=== PATIENT | female | born 1970 | race Caucasian/White ===

== ENCOUNTER 2016-11-16 07:59 | Inpatient (IN) | payer OTHER ==
[2016-11-16 18:58] VITALS: BMI 24.5
--- NOTE | 2016-11-16 19:53 | HP ---
CIWA Score - CIWA Score Nausea/Vomitin Muscle Tremors: 3 Anxiety: 2 Agitation: 2 Paroxysmal Sweats: 3 Orientation: 0-Oriented Tacttile Disturbances: 0-None Auditory Disturbances: 0-None Visual Disturbances: 0-None Headache: 3-Moderate CIWA-Ar Total Score: 15 Admission ROS BHS - HPI Chief Complaint: WITHDRAWAL SYMPTOMS Allergies/Adverse Reactions: Allergies Allergy/AdvReac Type Severity Reaction Status Date / Time Penicillins Allergy Intermediate Rash Verified 11/16/16 08:52 History of Present Illness: 46 Y.O. WOMAN WITH A HISTORY OF ALCOHOL DEPENDENCE IS HERE SEEKING DETOX. SHE REPORTS SHE COMPLETED REHAB IN 05/2016 AND DETOX IN 08/2016 AT ANOTHER FACILITY. DOES NOT HAVE A SIGNIFICANT PERIOD OF SOBRIETY. Exam Limitations: No Limitations - Ebola screening Have you traveled outside of the country in the last 21 days: No Have you been sick,other than usual withdrawal symptoms: No - Review of Systems Constitutional: Chills, Loss of Appetite, Night Sweats, Changes in sleep, Unintentional Wgt. Loss EENT: reports: Tearing, Nose Congestion Respiratory: reports: No Symptoms reported Cardiac: reports: No Symptoms Reported GI: reports: No Symptoms Reported, Poor Appetite : reports: No Symptoms Reported Musculoskeletal: reports: Back Pain Integumentary: reports: No Symptoms Reported Neuro: reports: Headache Endocrine: reports: No Symptoms Reported Hematology: reports: No Symptoms Reported Psychiatric: reports: Judgement Intact, Mood/Affect Appropiate, Orientated x3, Anxious, other (BIPOLAR) Other Systems: Reviewed and Negative Patient History - Patient Medical History Hx Anemia: No Hx Asthma: No Hx Chronic Obstructive Pulmonary Disease (COPD): No Hx Cancer: No Hx Cardiac Disorders: No Hx Congestive Heart Failure: No Hx Hypertension: Yes Hx Hypercholesterolemia: No Hx Pacemaker: No HX Cerebrovascular Accident: No Hx Seizures: No Hx Dementia: No Hx Diabetes: No Hx Gastrointestinal Disorders: No Hx Liver Disease: Yes (ELEVATED CHEMISTRY) Hx Genitourinary Disorders: No Hx Sexually Transmitted Disorders: No Hx Renal Disease (ESRD): No Hx Thyroid Disease: No Hx Human Immunodeficiency Virus (HIV): No Hx Hepatitis C: No Hx Depression: Yes Hx Suicide Attempt: No Hx Bipolar Disorder: Yes Hx Schizophrenia: No - Patient Surgical History Past Surgical History: Yes Hx Neurologic Surgery: No Hx Cataract Extraction: No Hx Cardiac Surgery: No Hx Lung Surgery: No Hx Breast Surgery: No Hx Breast Biopsy: No Hx Abdominal Surgery: No Hx Appendectomy: No Hx Cholecystectomy: No Hx Genitourinary Surgery: No Hx Section: No Hx Orthopedic Surgery: No Other Surgical History: T/A; HERNIA Anesthesia Reaction: No - PPD History Previous Implant?: Yes Documented Results: Negative w/o proof Implanted On Prior [facility] Admission?: Yes PPD to be Administered?: Yes - Reproductive History Patient is a Female of Child Bearing Age (11 -55 yrs old): Yes Last Menstrual Period: 11/02/16 Patient : No - Smoking Cessation Smoking history: Current every day smoker Have you smoked in the past 12 months: Yes Aproximately how many cigarettes per day: 2 Hx Chewing Tobacco Use: No Initiated information on smoking cessation: Yes 'Breaking Loose' booklet given: 11/16/16 - Substance & Tx. History Hx Alcohol Use: Yes Hx Substance Use: No Substance Use Type: Alcohol Hx Substance Use Treatment: Yes (REHAB: 05/2015; DETOX: 08/2016) - Substances Abused Alcohol Route: Oral Frequency: Daily Amount used: liquor- 1 pint, beer-1 six Age of first use: 14 Date of Last Use: 11/15/16 Family Disease History - Family Disease History Family Disease History: Diabetes: Grandparent, Heart Disease: Mother, Other: Father (HEROIN DEPENDENCE) Admission Physical Exam S - Vital Signs Vital Signs: Vital Signs - 24 hr 11/16/16 18:56 Temperature 98.2 F Pulse Rate 110 H Respiratory 18 Rate Blood Pressure 130/90 - Physical General Appearance: Yes: Anxious HEENTM: Yes: Hearing grossly Normal, Normocephalic, Normal Voice Respiratory: Yes: Chest Non-Tender, Lungs Clear, Normal Breath Sounds, No Respiratory Distress, No Accessory Muscle Use Neck: Yes: No masses,lesions,Nodules, Trachea in good position Breast: Yes: Breast Exam Deferred Cardiology: Yes: Regular Rhythm, Tachycardia Abdominal: Yes: Normal Bowel Sounds, Non Tender, Flat, Soft Genitourinary: Yes: Other (NO COMPLAINTS REPORTED) Musculoskeletal: Yes: Back pain Extremities: Yes: Normal Capillary Refill, Normal Inspection, Normal Range of Motion, Non-Tender 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 NML intact, Fully Oriented, Alert, Normal Mood/ Affect, Normal Response Integumentary: Yes: Normal Color, Dry, Warm Lymphatic: Yes: Within Normal Limits - Diagnostic (1) Alcohol dependence with uncomplicated withdrawal Current Visit: Yes Status: Chronic (2) Hypertension Current Visit: Yes Status: Chronic (3) Nicotine dependence Current Visit: Yes Status: Chronic Cleared for Admission [facility] - Detox or Rehab [facility] Level of Care: Medically Managed Detox Regimen/Protocol: Librium [facility] Breath Alcohol Content Breath Alcohol Content: 0 Urine Pregancy Test - Result Urine Test Results: Negative- NO Line Present Urine Drug Screen - Results Drug Screen Negative: No Urine Drug Screen Results: HERNAN-Cocaine, BZO-Benzodiazepines
[2016-11-16] MEDS ORDERED: ACETAMINOPHEN 325 MG TABLET (FP) PO PRN (20:03)
[2016-11-16] MEDS ORDERED: chlordiazePOXIDE HCL 25 MG CAPSULE PO PRN (20:03)
[2016-11-16] MEDS ORDERED: MENTHOL/PHENOL 1 EACH UD MM PRN (20:03)
[2016-11-16] MEDS ORDERED: NICOTINE POLACRILEX 2 MG GUM BUC PRN (20:03)
[2016-11-16] MEDS ORDERED: MAGNESIUM HYDROX 2400MG/30ML ORAL SUSPENSION 30 ML CUP PO PRN (20:03)
[2016-11-16] MEDS ORDERED: MAG HYDROX/AL HYDROX/SIMETH 30 ML UNIT-DOSE CUP PO PRN (20:03)
[2016-11-16] MEDS ORDERED: LOPERAMIDE HCL 2 MG CAPSULE PO PRN (20:03)
[2016-11-16] MEDS ORDERED: IBUPROFEN 400 MG TABLET (FP) PO PRN (20:03)
[2016-11-16] MEDS ORDERED: chlordiazePOXIDE HCL 25 MG CAPSULE PO ONE (20:03)
[2016-11-16] MEDS ORDERED: P-EPHED 60MG/TRIPROLIDI 2.5MG TABLET PO PRN (20:03)
[2016-11-16] MEDS ORDERED: guaiFENesin/D-METHORPHAN HB 10 ML UNIT-DOSE CUPS PO PRN (20:03)
[2016-11-16] MEDS ORDERED: MAGNESIUM CITRATE 300 ML BOTTLE PO PRN (20:03)
[2016-11-16] MEDS ORDERED: diphenhydrAMINE HCL 50 MG CAPSULE PO PRN (22:00)
[2016-11-16] MEDS: THIAMINE HCL 100 MG TABLET (FP) PO SCH (22:53)
[2016-11-16] MEDS: chlordiazePOXIDE HCL 25 MG CAPSULE PO SCH (22:53)
[2016-11-16] MEDS: hydrOXYzine PAMOATE 50 MG CAPSULE (FP) PO PRN (22:54)
[2016-11-16 23:05] LABS: URINE APPEARANCE SLCLOUDY; URINE BILIRUBIN NEGATIVE (NEGATIVE); URINE BLOOD 1+ (NEGATIVE); URINE COLOR YELLOW; URINE GLUCOSE (UA) NEGATIVE (NEGATIVE); URINE KETONE 1+ (NEGATIVE); URINE LEUK ESTERASE 1+ (NEGATIVE); URINE NITRITE NEGATIVE (NEGATIVE); URINE PROTEIN 1+ (NEGATIVE); URINE UROBILINOGEN NEGATIVE mg/dL (0.2-1.0)
[2016-11-16 23:07] LABS: URINE BACTERIA MODERATE /hpf (NONE SEEN); URINE MUCUS MANY; URINE RBC 5 /hpf (0-3); URINE WBC 37 /hpf (3-5); YEAST RARE
[2016-11-17] MEDS: chlordiazePOXIDE HCL 25 MG CAPSULE PO SCH ×4 (05:21→22:11)
[2016-11-17 10:03] LABS: ALBUMIN 3.6 g/dl (3.4-5.0); ANION GAP 7 (8-16); CALCIUM 8.4 mg/dL (8.5-10.1); CO2 27 mmol/L (21-32); GLUCOSE,RANDOM 110 mg/dL (74-106)
[2016-11-17 10:07] LABS: ALK PHOS 64 U/L (45-117); BILIRUBIN,TOTAL 1.2 mg/dL (0.2-1.0); CREATININE 0.7 mg/dL (0.55-1.02); MCH 29.6 pg (25.7-33.7); MCHC 33.4 g/dl (32.0-36.0); MEAN CELL VOLUME 88.5 fl (80-96); MEAN PLT VOLUME 7.5 fl (7.5-11.1); PLATELET COUNT 109 K/MM3 (134-434); RDW 13.5 % (11.6-15.6); SGOT/AST 82 U/L (15-37); SGPT/ALT 76 U/L (12-78); TOT PROT 6.3 g/dl (6.4-8.2); WHITE BLOOD COUNT 3.4 K/mm3 (4.0-10.0)
[2016-11-17] MEDS: PRENATAL VITAMINS W/ FOLIC ACID TABLET (FP) PO SCH (10:44)
[2016-11-17] MEDS: LISINOPRIL 10 MG TABLET (FP) PO SCH (10:44)
[2016-11-17] MEDS: NICOTINE 14 MG/24 HOURS TOPICAL PATCH TD SCH (10:45)
--- NOTE | 2016-11-17 11:04 | PN ---
S CIWA - CIWA Score Nausea/Vomitin Muscle Tremors: 3 Anxiety: 3 Agitation: 2 Paroxysmal Sweats: 1-Minimal Palms Moist Orientation: 0-Oriented Tacttile Disturbances: 1-Very Mild Itch/Numbness Auditory Disturbances: 1-Very Mild Visual Disturbances: 1-Very Mild Sensitivity Headache: 2-Mild CIWA-Ar Total Score: 17 BHS Progress Note (SOAP) Subjective: ALERT,IRRITABLE,ANXIOUS,INTERRUPTED SLEEP,TREMOR Objective: 11/17/16 11:02 Vital Signs Temperature 98.2 F 11/17/16 10:00 Pulse Rate 86 11/17/16 10:00 Respiratory Rate 18 11/17/16 10:00 Blood Pressure 135/86 11/17/16 10:00 O2 Sat by Pulse Oximetry (%) EKG NSR,NORMAL ECG Laboratory Last Values WBC 3.4 K/mm3 (4.0-10.0) L 11/17/16 07:00 RBC 3.64 M/mm3 (3.60-5.2) 11/17/16 07:00 Hgb 10.8 GM/dL (10.7-15.3) 11/17/16 07:00 Hct 32.2 % (32.4-45.2) L 11/17/16 07:00 MCV 88.5 fl (80-96) 11/17/16 07:00 MCH 29.6 pg (25.7-33.7) 11/17/16 07:00 MCHC 33.4 g/dl (32.0-36.0) 11/17/16 07:00 RDW 13.5 % (11.6-15.6) 11/17/16 07:00 Plt Count 109 K/MM3 (134-434) L 11/17/16 07:00 MPV 7.5 fl (7.5-11.1) 11/17/16 07:00 Sodium 136 mmol/L (136-145) 11/17/16 07:00 Potassium 3.7 mmol/L (3.5-5.1) 11/17/16 07:00 Chloride 102 mmol/L (98-107) 11/17/16 07:00 Carbon Dioxide 27 mmol/L (21-32) D 11/17/16 07:00 Anion Gap 7 (8-16) L 11/17/16 07:00 BUN 10 mg/dL (7-18) D 11/17/16 07:00 Creatinine 0.7 mg/dL (0.55-1.02) 11/17/16 07:00 Creat Clearance w eGFR > 60 (>60) 11/17/16 07:00 Random Glucose 110 mg/dL (74-106) H D 11/17/16 07:00 Calcium 8.4 mg/dL (8.5-10.1) L 11/17/16 07:00 Total Bilirubin 1.2 mg/dL (0.2-1.0) H D 11/17/16 07:00 AST 82 U/L (15-37) H D 11/17/16 07:00 ALT 76 U/L (12-78) 11/17/16 07:00 Alkaline Phosphatase 64 U/L (45-117) 11/17/16 07:00 Total Protein 6.3 g/dl (6.4-8.2) L 11/17/16 07:00 Albumin 3.6 g/dl (3.4-5.0) 11/17/16 07:00 Urine Color Yellow 11/16/16 22:50 Urine Appearance Slcloudy 11/16/16 22:50 Urine pH 5.0 (5.0-8.0) 11/16/16 22:50 Urine Protein 1+ (NEGATIVE) H 11/16/16 22:50 Urine Glucose (UA) Negative (NEGATIVE) 11/16/16 22:50 Urine Ketones 1+ (NEGATIVE) H 11/16/16 22:50 Urine Blood 1+ (NEGATIVE) H 11/16/16 22:50 Urine Nitrite Negative (NEGATIVE) 11/16/16 22:50 Urine Bilirubin Negative (NEGATIVE) 11/16/16 22:50 Urine Urobilinogen Negative mg/dL (0.2-1.0) 11/16/16 22:50 Ur Leukocyte Esterase 1+ (NEGATIVE) H 11/16/16 22:50 Urine RBC 5 /hpf (0-3) 11/16/16 22:50 Urine WBC 37 /hpf (3-5) 11/16/16 22:50 Ur Epithelial Cells Few /hpf (FEW) 11/16/16 22:50 Urine Bacteria Moderate /hpf (NONE SEEN) 11/16/16 22:50 Urine Mucus Many 11/16/16 22:50 Urine Yeast Rare 11/16/16 22:50 Assessment: 11/17/16 11:03 WITHDRAWAL SYMPTOM Plan: CONTINUE DETOX,REPEAT UA,ENCOURAGE ORAL FLUID
[2016-11-17 11:54] LABS: HIV 1 & 2 AB NEGATIVE; HIV 1 AGp24 NEGATIVE
--- NOTE | 2016-11-17 13:03 | CONSULT ---
[facility] Psychiatric Consult - Data Date of interview: 11/17/16 Admission source: [facility] Identifying data: Readmission to [facility] for this 46 y/o female seeking detox treatment on for alcohol dependence.Patient is single without children,domiciled,unemployed (just lost her job) and supported on personal savings. Substance Abuse History: Fully discussed with the patient.She confirms this [facility] report. - Smoking Cessation. Smoking history: Current every day smoker. Have you smoked in the past 12 months: Yes. Aproximately how many cigarettes per day : 2. Hx Chewing Tobacco Use: No. Initiated information on smoking cessation: Yes. 'Breaking Loose' booklet given: 11/16/16. - Substance & Tx. History. Hx Alcohol Use: Yes. Hx Substance Use: No. Substance Use Type: Alcohol. Hx Substance Use Treatment: Yes (REHAB: 05/2015; DETOX: 08/2016). - Substances Abused. Alcohol. Route: Oral. Frequency: Daily. Amount used: liquor- 1 pint, beer-1 six. Age of first use: 14. Date of Last Use: 11/15/16 Medical History: Hypertension and chronic back pain. Psychiatric History: Recent history of psycchiatric hospitalizations at [facility] (2015 + 2016).Diagnosed with Bipolar Disorder.Ms Lindsey reports that, until recently,she was folllowed at the [facility] in [facility] (Dr Batista).Maintenance medications consist of lithium 300 mg po bid + seroquel 50 mg/hs.Not taken for past four days as per self-report.Patient denies history of suicide attempts. Physical/Sexual Abuse/Trauma History: Patient denies. Additional Comment: Urine Drug Screen Results: HERNAN-Cocaine, BZO- Benzodiazepines.Noted. Mental Status Exam - Mental Status Exam Alert and Oriented to: Time, Place, Person Cognitive Function: Good Patient Appearance: Well Groomed Mood: Hopeful, Euthymic Affect: Appropriate, Normal Range Patient Behavior: Fatigued, Appropriate, Cooperative Speech Pattern: Clear Voice Loudness: Normal (faroese fluent) Thought Process: Intact, Goal Oriented Thought Disorder: Not Present Hallucinations: Denies Suicidal Ideation: Denies Homicidal Ideation: Denies Insight/Judgement: Poor Sleep: Poorly, Difficulty falling asleep Appetite: Good Muscle strength/Tone: Normal Gait/Station: Normal Psychiatric Findings - Problem List (Martinez 1, 2,3) (1) Alcohol dependence with uncomplicated withdrawal Current Visit: Yes Status: Acute (2) Nicotine dependence Current Visit: Yes Status: Acute (3) Bipolar disorder Current Visit: Yes Status: Acute (4) Hypertension Current Visit: Yes Status: Chronic (5) Insomnia Current Visit: Yes Status: Acute - Initial Treatment Plan Initial Treatment Plan: Psychoeducation.Detoxification.Medications : lithium 300 mg po bid + seroquel 50 mg po hs.Patient is a good,reliable historian : medications verified with [id number] at [phone].Will start medications ( lithium level pending) in view of recent renal function evidenced by BUN = 10 - creatinine = 0.7 and GFR > 60.Electrolytes are normal.Side effects/benefits of these two drugs are discussed with patient,including potential for renal dysfunction,thyroid problems,alopecia areata,tremor,weight gain (lithium), oversedation/falls,metabolic syndrome,abnormal involuntary movements and cardiovasculr adverse events (seroquel).Patient insists on resuming her medications.Will follow lithium level and recheck Na level (repeat BMP).Patient is in agreement with this careplan.Observation.
[2016-11-17 22:04] LABS: URINE APPEARANCE CLEAR; URINE BILIRUBIN NEGATIVE (NEGATIVE); URINE BLOOD 1+ (NEGATIVE); URINE COLOR STRAW; URINE GLUCOSE (UA) NEGATIVE (NEGATIVE); URINE KETONE NEGATIVE (NEGATIVE); URINE NITRITE NEGATIVE (NEGATIVE); URINE PROTEIN NEGATIVE (NEGATIVE); URINE UROBILINOGEN NEGATIVE mg/dL (0.2-1.0)
[2016-11-17] MEDS: QUEtiapine FUMARATE 50 MG TABLET PO SCH (22:11)
[2016-11-17] MEDS: LITHIUM CARBONATE 300 MG CAPSULE (FP) PO SCH (22:11)
[2016-11-17] MEDS: THIAMINE HCL 100 MG TABLET (FP) PO SCH (22:11)
[2016-11-17 22:15] LABS: URINE LEUK ESTERASE 2+ (NEGATIVE)
[2016-11-17 22:47] LABS: URINE BACTERIA RARE /hpf (NONE SEEN); URINE RBC <1 /hpf (0-3); URINE WBC 3 /hpf (3-5)
[2016-11-18] MEDS: chlordiazePOXIDE HCL 25 MG CAPSULE PO SCH ×3 (05:52→17:33)
--- NOTE | 2016-11-18 08:15 | EKG ---
Test Reason : Blood Pressure : / mmHG Vent. Rate : 084 BPM Atrial Rate : 084 BPM P-R Int : 166 ms QRS Dur : 080 ms QT Int : 400 ms P-R-T Axes : 059 041 045 degrees QTc Int : 472 ms NORMAL SINUS RHYTHM NORMAL ECG WHEN COMPARED WITH ECG OF 16-NOV-2016 08:52, NO SIGNIFICANT CHANGE WAS FOUND Confirmed by TERESSA COOPER MD ([id number]) on 11/18/2016 8:15:08 AM Referred By: Cortez Krueger Confirmed By:TERESSA COOPER MD
[2016-11-18] MEDS: NICOTINE 14 MG/24 HOURS TOPICAL PATCH TD SCH (10:14)
[2016-11-18] MEDS: PRENATAL VITAMINS W/ FOLIC ACID TABLET (FP) PO SCH (10:16)
[2016-11-18] MEDS: LITHIUM CARBONATE 300 MG CAPSULE (FP) PO SCH ×2 (10:16→22:12)
[2016-11-18] MEDS: LISINOPRIL 10 MG TABLET (FP) PO SCH (10:17)
--- NOTE | 2016-11-18 11:33 | PN ---
[facility] CIWA - CIWA Score Nausea/Vomitin Muscle Tremors: 3 Anxiety: 3 Agitation: 2 Paroxysmal Sweats: 1-Minimal Palms Moist Orientation: 0-Oriented Tacttile Disturbances: 1-Very Mild Itch/Numbness Auditory Disturbances: 1-Very Mild Visual Disturbances: 1-Very Mild Sensitivity Headache: 2-Mild CIWA-Ar Total Score: 17 S Progress Note (SOAP) Subjective: ALERT,IRRITABLE,ANXIOUS,INTERRUPTED SLEEP, Objective: 11/18/16 11:36 Vital Signs Temperature 98.1 F 11/18/16 10:01 Pulse Rate 101 H 11/18/16 10:01 Respiratory Rate 18 11/18/16 10:01 Blood Pressure 137/88 11/18/16 10:01 O2 Sat by Pulse Oximetry (%) 11/18/16 11:36 Laboratory Last Values WBC 3.4 K/mm3 (4.0-10.0) L 11/17/16 07:00 RBC 3.64 M/mm3 (3.60-5.2) 11/17/16 07:00 Hgb 10.8 GM/dL (10.7-15.3) 11/17/16 07:00 Hct 32.2 % (32.4-45.2) L 11/17/16 07:00 MCV 88.5 fl (80-96) 11/17/16 07:00 MCH 29.6 pg (25.7-33.7) 11/17/16 07:00 MCHC 33.4 g/dl (32.0-36.0) 11/17/16 07:00 RDW 13.5 % (11.6-15.6) 11/17/16 07:00 Plt Count 109 K/MM3 (134-434) L 11/17/16 07:00 MPV 7.5 fl (7.5-11.1) 11/17/16 07:00 Sodium 136 mmol/L (136-145) 11/17/16 07:00 Potassium 3.7 mmol/L (3.5-5.1) 11/17/16 07:00 Chloride 102 mmol/L (98-107) 11/17/16 07:00 Carbon Dioxide 27 mmol/L (21-32) D 11/17/16 07:00 Anion Gap 7 (8-16) L 11/17/16 07:00 BUN 10 mg/dL (7-18) D 11/17/16 07:00 Creatinine 0.7 mg/dL (0.55-1.02) 11/17/16 07:00 Creat Clearance w eGFR > 60 (>60) 11/17/16 07:00 Random Glucose 110 mg/dL (74-106) H D 11/17/16 07:00 Fasting Glucose 106 mg/dL (70-105) H 11/18/16 08:00 Calcium 8.4 mg/dL (8.5-10.1) L 11/17/16 07:00 Total Bilirubin 1.2 mg/dL (0.2-1.0) H D 11/17/16 07:00 AST 82 U/L (15-37) H D 11/17/16 07:00 ALT 76 U/L (12-78) 11/17/16 07:00 Alkaline Phosphatase 64 U/L (45-117) 11/17/16 07:00 Total Protein 6.3 g/dl (6.4-8.2) L 11/17/16 07:00 Albumin 3.6 g/dl (3.4-5.0) 11/17/16 07:00 Urine Color Straw 11/17/16 21:45 Urine Appearance Clear 11/17/16 21:45 Urine pH 8.0 (5.0-8.0) D 11/17/16 21:45 Ur Specific [place] 1.010 (1.005-1.025) 11/17/16 21:45 Urine Protein Negative (NEGATIVE) 11/17/16 21:45 Urine Glucose (UA) Negative (NEGATIVE) 11/17/16 21:45 Urine Ketones Negative (NEGATIVE) 11/17/16 21:45 Urine Blood 1+ (NEGATIVE) H 11/17/16 21:45 Urine Nitrite Negative (NEGATIVE) 11/17/16 21:45 Urine Bilirubin Negative (NEGATIVE) 11/17/16 21:45 Urine Urobilinogen Negative mg/dL (0.2-1.0) 11/17/16 21:45 Ur Leukocyte Esterase 2+ (NEGATIVE) H 11/17/16 21:45 Urine RBC <1 /hpf (0-3) 11/17/16 21:45 Urine WBC 3 /hpf (3-5) 11/17/16 21:45 Ur Epithelial Cells Rare /hpf (FEW) 11/17/16 21:45 Urine Bacteria Rare /hpf (NONE SEEN) 11/17/16 21:45 Urine Mucus Many 11/16/16 22:50 Urine Yeast Rare 11/16/16 22:50 [place] 0.1 MEQ/L (0.6-1.2) L 11/17/16 07:00 RPR Titer Nonreactive (NONREACTIVE) 11/17/16 07:00 Hepatitis C Antibody <0.1 s/co ratio (0.0-0.9) 11/16/16 07:00 HIV 1&2 Antibody Screen Negative 11/17/16 07:00 HIV P24 Antigen Negative 11/17/16 07:00 11/18/16 11:37 FASTING GLUISE IS 106 Assessment: 11/18/16 11:37 WITHDRAWAL SYMPTOM Plan: CONTINUE DETOX
[2016-11-18] MEDS: hydrOXYzine PAMOATE 50 MG CAPSULE (FP) PO PRN ×2 (12:01→17:17)
[2016-11-18] MEDS: THIAMINE HCL 100 MG TABLET (FP) PO SCH (22:12)
[2016-11-18] MEDS: QUEtiapine FUMARATE 50 MG TABLET PO SCH (22:12)
[2016-11-18] MEDS: chlordiazePOXIDE 5 MG CAPSULE PO SCH (22:13)
[2016-11-19] MEDS: chlordiazePOXIDE 5 MG CAPSULE PO SCH ×3 (05:47→17:55)
[2016-11-19] MEDS: LISINOPRIL 10 MG TABLET (FP) PO SCH (10:16)
[2016-11-19] MEDS: PRENATAL VITAMINS W/ FOLIC ACID TABLET (FP) PO SCH (10:16)
[2016-11-19] MEDS: NICOTINE 14 MG/24 HOURS TOPICAL PATCH TD SCH (10:16)
[2016-11-19] MEDS: LITHIUM CARBONATE 300 MG CAPSULE (FP) PO SCH ×2 (10:16→22:26)
--- NOTE | 2016-11-19 10:43 | PN ---
S Progress Note (SOAP) Subjective: ALERT,IRRITABLE,ANXIOUS,INTERRUPTED SLEEP,CONSTIPATION Objective: 11/19/16 10:42 Vital Signs Temperature 97.3 F L 11/19/16 10:25 Pulse Rate 93 H 11/19/16 10:25 Respiratory Rate 18 11/19/16 10:25 Blood Pressure 134/88 11/19/16 10:25 O2 Sat by Pulse Oximetry (%) Assessment: 11/19/16 10:42 WITHDRAWAL SYMPTOM Plan: CONTINUE DETOX
[2016-11-19] MEDS: hydrOXYzine PAMOATE 50 MG CAPSULE (FP) PO PRN (14:03)
[2016-11-19] MEDS: QUEtiapine FUMARATE 50 MG TABLET PO SCH (22:25)
[2016-11-19] MEDS: chlordiazePOXIDE HCL 10 MG CAPSULE PO SCH (22:26)
[2016-11-19] MEDS: THIAMINE HCL 100 MG TABLET (FP) PO SCH (22:26)
[2016-11-20] MEDS: chlordiazePOXIDE HCL 10 MG CAPSULE PO SCH ×2 (05:44→11:22)
[2016-11-20] MEDS: hydrOXYzine PAMOATE 50 MG CAPSULE (FP) PO PRN (08:54)
--- NOTE | 2016-11-20 09:03 | DS ---
[facility] Detox Discharge Summary Admission Date: 11/16/16 Discharge Date: 11/20/16 - History Present History: Alcohol Dependence Additional Comments: follow up with after care program as arrangement Pertinent Past History: nicotine dependence hypertension - Physical Exam Results Vital Signs: Vital Signs Temperature 97.7 F 11/20/16 06:22 Pulse Rate 87 11/20/16 06:22 Respiratory Rate 18 11/20/16 06:22 Blood Pressure 102/67 11/20/16 06:22 O2 Sat by Pulse Oximetry (%) Pertinent Admission Physical Exam Findings: withdrawal ymptom - Treatment Hospital Course: Detox Protocol Followed, Responded well, Discharged Condition Good, Rehab Referral Accepted Patient has Accepted a Rehab Referral to: declined - Medication Discharge Medications: Ambulatory Orders Lisinopril [Zestril] 10 mg PO DAILY 11/16/16 [place] Carbonate [Lithobid] 300 mg PO BID 11/16/16 Quetiapine Fumarate [Seroquel -] 50 mg PO HS 11/16/16 Quetiapine Fumarate [Seroquel -] 50 mg PO HS #30 tablet 11/17/16 - Diagnosis (1) Alcohol dependence with uncomplicated withdrawal Current Visit: Yes Status: Acute (2) Hypertension Current Visit: Yes Status: Chronic (3) Nicotine dependence Current Visit: Yes Status: Acute (4) Bipolar disorder Current Visit: Yes Status: Acute (5) Insomnia Current Visit: Yes Status: Acute - AMA Did Patient Leave Against Medical Advice: No
[2016-11-20 09:48] VITALS: BP 133/84; PULSE 117; TEMP 98.1
[2016-11-20] MEDS: PRENATAL VITAMINS W/ FOLIC ACID TABLET (FP) PO SCH (11:21)
[2016-11-20] MEDS: LITHIUM CARBONATE 300 MG CAPSULE (FP) PO SCH (11:21)
[2016-11-20] MEDS: LISINOPRIL 10 MG TABLET (FP) PO SCH (11:22)
[2016-11-20] MEDS: NICOTINE 14 MG/24 HOURS TOPICAL PATCH TD SCH (11:22)
== END 2016-11-20 11:35 | disposition home or self-care (01) | DRG 775 ==
LOC: YASAS 07:59 → Y6N 19:19
PROVIDERS: ADMIT Internal Medicine; ATTEND Internal Medicine
PROC: HZ2ZZZZ Detoxification Services for Substance Abuse Treatment (ICD-10-PCS; principal; 2016-11-16)
DX: F10.230 Alcohol dependence with withdrawal, uncomplicated (principal); F17.210 Nicotine dependence, cigarettes, uncomplicated; F31.9 Bipolar disorder, unspecified; I10 Essential (primary) hypertension; G47.00 Insomnia, unspecified; R00.0 Tachycardia, unspecified
CPT/HCPCS: 36415; 80053; 80178; 81003; 81015; 82947; 85027; 86593; 86803; 87389; 93005; 93010

== ENCOUNTER 2016-11-16 08:44 | Emergency (ER) | payer OTHER ==
--- NOTE | 2016-11-16 08:54 | PDOC ---
History of Present Illness - General Chief Complaint: Chest Pain Stated Complaint: CHEST PAIN Time Seen by Provider: 11/16/16 08:54 - History of Present Illness Initial Comments: 11/16/16 09:50 Patient is a 46-year-old female past medical history of hypertension, who presents to the emergency department today complaining of chest tightness. Patient states that she was at [facility] to be admitted for detox (alcohol), when she fell lightheaded, dizzy and had some chest tightness. Patient states that her last drink was yesterday evening. She drank a liter of vodka yesterday. Patient also states that she smokes approximately 5 cigarettes a day. Denies tremors. Admits to nausea, vomiting. She states she has tried rehabilitation before, and that she has felt like this in the past when she is withdrawing but she is usually "just toughed it out". Denies fevers, chills, weakness, numbness and tingling, palpitations, edema, shortness of breath, cough, diarrhea, constipation, frequency, urgency and dysuria. Past History - Travel Traveled outside of the country in the last 30 days: No Close contact w/someone who was outside of country & ill: No - Past Medical History Allergies/Adverse Reactions: Allergies Allergy/AdvReac Type Severity Reaction Status Date / Time Penicillins Allergy Intermediate Rash Verified 11/16/16 08:52 Home Medications: Ambulatory Orders Unobtainable [Unobtainable] 11/16/16 HTN: Yes Liver Disease: Yes (ELEVATED CHEMISTRY) - Psycho/Social/Smoking Cessation Hx Smoking History: Current every day smoker Have you smoked in the past 12 months: Yes Number of Cigarettes Smoked Daily: 2 'Breaking Loose' booklet given: 12/31/13 Hx Alcohol Use: No Drug/Substance Use Hx: Yes (FEW TIMES/WEEK) Substance Use Type: Marijuana Review of Systems - Review of Systems Able to Perform ROS?: Yes Is the patient limited Belizean proficient: No Constitutional: No: Chills, Fever, Weakness Respiratory: No: Cough, Shortness of Breath, Wheezing Cardiac (ROS): Yes: Chest Pain, Lightheadedness, Chest Tightness. No: Edema, Palpitations ABD/GI: Yes: Nausea, Vomiting. No: Diarrhea : No: Burning, Dysuria, Frequency, Flank Pain, Hematuria Musculoskeletal: Yes: Back Pain Neurological: No: Headache, Numbness, Weakness, Unsteady Gait Psychiatric: Yes: Anxiety, Other (alchohol abuse). No: Depression All Other Systems: Reviewed and Negative *Physical Exam - Physical Exam Comments: 11/16/16 09:53 GENERAL: Well developed, well nourished. Awake and alert. No acute distress. HEENT: Normocephalic, atraumatic. PERRLA, EOMI. No conjunctival pallor. Sclera are non- icteric. Moist mucous membranes. Oropharynx is clear. NECK: Supple. Full ROM. No JVD. Carotid pulses 2+ and symmetric, without bruits. No thyromegaly. No lymphadenopathy. CARDIOVASCULAR: Regular rate and rhythm. No murmurs, rubs, or gallops. Distal pulses are 2+ and symmetric. PULMONARY: No evidence of respiratory distress. Lungs clear to auscultation bilaterally. No wheezing, rales or rhonchi. ABDOMINAL: Soft. Non-tender. Non-distended. No rebound or guarding. No organomegaly. Normoactive bowel sounds. MUSCULOSKELETAL Normal range of motion at all joints. No bony deformities or tenderness. No CVA tenderness. EXTREMITIES: No cyanosis. No clubbing. No edema. No calf tenderness. SKIN: Warm and dry. Normal capillary refill. No rashes. No jaundice. NEUROLOGICAL: Alert, awake, appropriate. Cranial nerves 2-12 intact. No deficits to light touch and temperature in face, upper extremities and lower extremities. No motor deficits in the in face, upper extremities and lower extremities. Normoreflexic in the upper and lower extremities. Normal speech. Toes are down- going bilaterally. Gait is normal without ataxia. PSYCHIATRIC: Cooperative. Good eye contact. Appropriate mood and affect. Heart Score/ECG Review - History History: Slightly suspicious - Electrocardiogram EKG: Normal - Age Age: 45-65 - Risk Factors Risk Factors Heart Score: Yes Hx Hypertension Based on the list above the patient has:: 1-2 risk factors - Troponin Troponin: </= normal limit - Score Heart Score - Total: 2 ED Treatment Course - LABORATORY CBC & Chemistry Diagram: 11/16/16 09:12 11/16/16 09:12 Medical Decision Making - Medical Decision Making 11/16/16 09:53 *DC/Admit/Observation/Transfer Diagnosis at time of Disposition: Chest pain Qualifiers: Chest pain type: other chest pain Qualified Code(s): R07.89 - Other chest pain - Discharge Dispostion Disposition: I.P. ALCOHOL/SUBS ABUSE REHAB Condition at time of disposition: Stable - Referrals Referrals: Aubree Paniagua MD [Primary Care Provider] - - Patient Instructions Printed Discharge Instructions: DI for Atypical Chest Pain Additional Instructions: You had some chest pain and nausea. Your work up today was negative and your cardiac labs were negative. Drink plenty of fluids. You may return to [facility]. Return to the ED if you have recurring chest pain, shortness of breath, dizziness, or lightheadedness, or any changes in your symptoms. Print Language: PRYDEINIG CIWA Score - CIWA Score Nausea/Vomitin (intermittant nausea with occasional vomiting) Muscle Tremors: None Anxiety: 4-Mod. Anxious/Guarded Agitation: 1-Slight > Activity Paroxysmal Sweats: No Perspiration Orientation: 0-Oriented Tacttile Disturbances: 0-None Auditory Disturbances: 0-None Visual Disturbances: 0-None Headache: 0-None Present CIWA-Ar Total Score: 10
[2016-11-16] MEDS ORDERED: ASPIRIN 81 MG CHEWABLE TABLETS PO ONE (08:55)
[2016-11-16 09:00] VITALS: BMI 24.5
[2016-11-16] MEDS ORDERED: FOLIC ACID INJECTION - 1 MG, THIAMINE HCL 100 MG, MULTIVIT INJECTION ADULT 10 ML in SOD... IVPB ONE (09:01)
[2016-11-16] MEDS ORDERED: ONDANSETRON 4 MG/2 ML VIAL IVPUSH ONE (09:06)
[2016-11-16] MEDS ORDERED: LORazepam 1 MG TABLET PO ONE ×2 (09:22→15:30)
[2016-11-16] MEDS ORDERED: ASPIRIN 81 MG CHEWABLE TABLETS ONE (09:22)
[2016-11-16] MEDS ORDERED: ONDANSETRON 4 MG/2 ML VIAL ONE (09:22)
[2016-11-16] MEDS ORDERED: LORazepam 0.5 MG TABLET ONE ×2 (09:27→16:06)
[2016-11-16 09:31] LABS: BASOPHIL 0.5 % (0-2.0); EOSINOPHIL 0.1 % (0-4.5); MCH 29.6 pg (25.7-33.7); MCHC 33.2 g/dl (32.0-36.0); MEAN PLT VOLUME 7.4 fl (7.5-11.1); NEUTROPHILS 71.6 % (42.8-82.8); PLATELET COUNT 122 K/MM3 (134-434); RDW 13.6 % (11.6-15.6); WHITE BLOOD COUNT 3.6 K/mm3 (4.0-10.0)
[2016-11-16 09:44] LABS: INR 0.95 (0.82-1.09); PROTHROMBIN TIME (PATIENT) 10.4 SEC (9.98-11.88)
[2016-11-16 10:03] LABS: ALBUMIN 4.1 g/dl (3.4-5.0); ANION GAP 16 (8-16); BILIRUBIN,TOTAL 0.7 mg/dL (0.2-1.0); CALCIUM 8.3 mg/dL (8.5-10.1); CO2 20 mmol/L (21-32); CREATININE 0.6 mg/dL (0.55-1.02); GLUCOSE,RANDOM 80 mg/dL (74-106); MAGNESIUM 1.7 mg/dL (1.8-2.4); SGOT/AST 122 U/L (15-37); SGPT/ALT 88 U/L (12-78)
[2016-11-16 10:05] LABS: ALK PHOS 74 U/L (45-117); CPK 249 IU/L (26-192); TROPONIN I < 0.02 ng/ml (0.00-0.05)
[2016-11-16] MEDS ORDERED: SODIUM CHLORIDE 1,000 ML IV STA (10:39)
[2016-11-16 11:58] LABS: URINE APPEARANCE CLEAR; URINE BILIRUBIN NEGATIVE (NEGATIVE); URINE BLOOD NEGATIVE (NEGATIVE); URINE COLOR LTYELLOW; URINE GLUCOSE (UA) NEGATIVE (NEGATIVE); URINE KETONE TRACE (NEGATIVE); URINE LEUK ESTERASE TRACE (NEGATIVE); URINE NITRITE NEGATIVE (NEGATIVE); URINE PROTEIN NEGATIVE (NEGATIVE); URINE UROBILINOGEN NEGATIVE mg/dL (0.2-1.0)
[2016-11-16 12:33] LABS: URINE MUCUS RARE; URINE RBC 1 /hpf (0-3); URINE WBC 2 /hpf (3-5)
--- NOTE | 2016-11-16 12:39 | PDOC ---
*Physical Exam - Vital Signs Last Vital Signs Temp Pulse Resp BP Pulse Ox 98.1 F 105 H 20 132/90 97 11/16/16 08:53 11/16/16 08:53 11/16/16 08:53 11/16/16 08:53 11/16/16 09:04 - Physical Exam Comments: 11/16/16 12:52 GENERAL: Awake, alert, and fully oriented, in no acute distress HEAD: No signs of trauma EYES: PERRLA, EOMI, sclera anicteric, conjunctiva clear ENT: Auricles normal inspection, hearing grossly normal, nares patent, oropharynx clear without exudates. Moist mucosa NECK: Normal ROM, supple, no lymphadenopathy, JVD, or masses LUNGS: Breath sounds equal, clear to auscultation bilaterally. No wheezes, and no crackles HEART: Regular rate and rhythm, normal S1 and S2, no murmurs, rubs or gallops ABDOMEN: Soft, nontender, normoactive bowel sounds. No guarding, no rebound. No masses EXTREMITIES: Normal range of motion, no edema. No clubbing or cyanosis. No cords, erythema, or tenderness NEUROLOGICAL: Cranial nerves II through XII grossly intact. Normal speech, normal gait, no tremor, no tongue fasciculations SKIN: Warm, Dry, normal turgor, no rashes or lesions noted. Vascular Pulses: Femoral (R): 4+, Femoral (L): 4+, Carotid (R): 4+, Carotid (L) : 4+, Dorsalis-Pedis (R): 4+, Doralis-Pedis (L): 4+ Heart Score/ECG Review - History History: Slightly suspicious - Electrocardiogram EKG: Normal - Age Age: 45-65 - Risk Factors Risk Factors Heart Score: Yes Hx Hypertension Based on the list above the patient has:: 1-2 risk factors - Troponin Troponin: </= normal limit - Score Heart Score - Total: 2 - ECG Intrepretation Rhythm: Regular Rhythm - [place]: Normal - ECG Impressions Normal ECG: Yes Non-specific ST Elevation: No Ischemic Changes: No ED Treatment Course - LABORATORY CBC & Chemistry Diagram: 11/16/16 09:12 11/16/16 09:12 - ADDITIONAL ORDERS Additional order review: Laboratory Results 11/16/16 11/16/16 11/16/16 11:43 09:12 09:12 INR 0.95 Sodium 133 L Potassium 3.8 Chloride 97 L Carbon Dioxide 20 L Anion Gap 16 BUN 16 Creatinine 0.6 Creat Clearance w eGFR > 60 Random Glucose 80 Calcium 8.3 L Magnesium 1.7 L Total Bilirubin 0.7 AST 122 H ALT 88 H Alkaline Phosphatase 74 Creatine Kinase 249 H Creatine Kinase Index 0.4 CK-MB (CK-2) < 1.000 Troponin I < 0.02 Total Protein 7.0 Albumin 4.1 Urine Color Ltyellow Urine Appearance Clear Urine pH 5.0 Urine Protein Negative Urine Glucose (UA) Negative Urine Ketones Trace H Urine Blood Negative Urine Nitrite Negative Urine Bilirubin Negative Urine Urobilinogen Negative Ur Leukocyte Esterase Trace Urine RBC 1 Urine WBC 2 Urine Mucus Rare Urine HCG, Qual Negative 11/16/16 09:12 RBC 3.94 MCV 89.0 MCHC 33.2 RDW 13.6 MPV 7.4 L Neutrophils % 71.6 Lymphocytes % 21.7 Monocytes % 6.1 Eosinophils % 0.1 Basophils % 0.5 - Medications Given in the ED: ED Medications Discontinued Medications Generic Name Dose Route Start Last Admin Trade Name Omarq PRN Reason Stop Dose Admin Aspirin 162 mg 11/16/16 08:55 11/16/16 09:24 Asa - PO 11/16/16 08:56 162 mg ONCE ONE Administration Sodium Chloride 1,000 mls @ 1,000 mls/hr 11/16/16 10:39 11/16/16 10:57 Normal Saline - IV 11/16/16 11:38 1,000 mls/hr ASDIR STA Administration Lorazepam 1 mg 11/16/16 09:22 11/16/16 09:29 Ativan - PO 11/16/16 09:23 1 mg ONCE ONE Administration Ondansetron HCl 4 mg 11/16/16 09:06 11/16/16 09:24 Zofran Injection IVPUSH 11/16/16 09:07 4 mg ONCE ONE Administration Medical Decision Making - Medical Decision Making 11/16/16 12:53 46 F with h/o ETOH abuse, HTN presents to ER with chest pain, now resolved. Pain was non-exertional, non-pleuritic, very atypical in nature. Pt low risk for MACE (HEART score 2). Will tx for early ETOH withdrawal and trend trops to r /o ACS. - Labs, tropx2 - EKG - Benzos PRN 11/16/16 13:58 Pt reports significant improvement in symptoms s/p ativan. Requesting DC to return to rehab. DC pending final trop *DC/Admit/Observation/Transfer Diagnosis at time of Disposition: Chest pain Qualifiers: Chest pain type: other chest pain Qualified Code(s): R07.89 - Other chest pain - Discharge Dispostion Disposition: I.P. ALCOHOL/SUBS ABUSE REHAB Condition at time of disposition: Stable Admit: No - Referrals Referrals: Aubree Paniagua MD [Primary Care Provider] - - Attestations Physician Attestion: 11/16/16 13:59 I, Dr. Zane Gould MD, attest that this document has been prepared under my direction and personally reviewed by me in its entirety. I further attest, that it accurately reflects all work, treatment, procedures and medical decision -making performed by me.
[2016-11-16 14:44] LABS: CPK 260 IU/L (26-192); TROPONIN I 0.02 ng/ml (0.00-0.05)
--- NOTE | 2016-11-16 15:06 | EKG ---
Test Reason : Blood Pressure : / mmHG Vent. Rate : 103 BPM Atrial Rate : 103 BPM P-R Int : 164 ms QRS Dur : 078 ms QT Int : 368 ms P-R-T Axes : 044 040 041 degrees QTc Int : 482 ms SINUS TACHYCARDIA POSSIBLE LEFT ATRIAL ENLARGEMENT BORDERLINE ECG NO PREVIOUS ECGS AVAILABLE Confirmed by EILEEN ANDERSEN MD ([id number]) on 11/16/2016 3:06:13 PM Referred By: Confirmed By:EILEEN ANDERSEN MD
[2016-11-16 15:12] VITALS: BP 137/91; PULSE 99; TEMP 98.2
== END 2016-11-16 15:58 | disposition other institution (70) ==
LOC: JER 08:44
PROC: 3E033GC Introduction of Other Therapeutic Substance into Peripheral Vein, Percutaneous Approach (ICD-10-PCS; principal; 2016-11-16)
PROC: 3E0337Z Introduction of Electrolytic and Water Balance Substance into Peripheral Vein, Percutaneous Approach (ICD-10-PCS; 2016-11-16)
DX: R07.89 Other chest pain (principal); I10 Essential (primary) hypertension; F17.210 Nicotine dependence, cigarettes, uncomplicated; F10.10 Alcohol abuse, uncomplicated; Z88.0 Allergy status to penicillin
CPT/HCPCS: 36415; 71020-TC; 80053; 81003; 81015; 82553; 83735; 84484; 84703; 85025; 85610; 87086; 87186; 93005; 93010; 99284-25